=== PATIENT | male | born 1950 | race Caucasian/White ===

== ENCOUNTER → 2018-11-26 | Day surgery (SDC) | payer OTHER ==
[2018-11-25 15:31] LABS: BASOPHILS # (AUTO) 0.1 (0.0-0.1); BASOPHILS % 0.6 % (0.0-1.0); EOSINOPHILS # (AUTO) 0.4 (0.0-0.4); EOSINOPHILS % 3.7 % (0.0-6.0); HEMATOCRIT 38.3 % (38.2-49.6); HEMOGLOBIN 13.7 g/dL (14.0-18.0); LYMPHOCYTES # (AUTO) 1.5 (1.0-3.2); LYMPHOCYTES % 15.2 % (18.0-39.1); MEAN CORPUSCULAR HEMOGLOBIN 32.2 pg (28-32); MEAN CORPUSCULAR HGB CONC 35.8 g/dL (31-35); MEAN CORPUSCULAR VOLUME 89.9 fL (81-99); MONOCYTES # (AUTO) 0.8 (0.2-0.8); MONOCYTES % 8.4 % (4.4-11.3); NEUTROPHILS # (AUTO) 7.2 (2.1-6.9); NEUTROPHILS % 71.7 % (38.7-80.0); PLATELET COUNT 233 x10e3/uL (140-360); RED BLOOD COUNT 4.26 x10e6/uL (4.3-5.7); RED CELL DISTRIBUTION WIDTH 15.3 % (11.7-14.4)
[~2018-11-26] MED LIST: ALLEGRA-D 24 H1 EACH PO; ALLOPURINOL300 MG PO; ASPIR 8181 MG PO; ATENOLOL-CHLOR1 EAC1 PO; BACLOFEN10 MG PO; FAMOTIDINE20 MG PO; FENTANYL CITRATE/PF 100MCG/2 ML INJ ONE; LEVOTHYROXINE112 MCG PO; METOCLOPRAMIDE HCL 10 MG/2ML VIAL ONE; MIDAZOLAM HCL 2 MG/2 ML VIAL ONE; MIRALAX17 GM PO; NITROFURANTOIN100 MG PO; POTASSIUM CHLO10 ME1 PO; PROPOFOL IV EMULSION 10 MG/ML 20 ML VIAL ONE; SINEX; TORSEMIDE10 MG PO; TYLENOL EXTRA500 MG PEG; ULTRAM50 MG PO; VITAMIN D32000 UNIT PO
--- OUTSIDE RECORDS SUMMARY | 2018-11-26 13:00 | XMS REPORT | Continuity of Care Document ---
Author Author Formerly [facility] Interface Address Unknown Phone Unavailable Problems Problem Status Onset Date Classification Date Reported Comments Source LUMBAR RADIC Active 09/10/2018 [facility] [place] SPINAL STENOSIS, LUMBAR REGION WITH NEUR Active 09/03/2018 [place] LUMBAR RADICULOPATHY, SPINAL STENOSIS Active 09/03/2018 [place] 813.42 - FX DISTAL RADIU Active 03/17/2015 [facility] [place] WRIST FA Active 03/15/2015 [facility] [place] Gout Active Problem 11/20/2018 [facility], [place], [facility] [place] HBP (<span ID="[id number]">Confirmed</span>) Active Problem 11/20/2018 [facility], [place], [facility] [place] Morbid obesity Active Problem 11/20/2018 [facility] [place] [place] Chronic venous insufficiency Active Problem 11/20/2018 [facility] [place] [place] Edema Active Problem 11/20/2018 [facility] [place], [facility] [place] Hepatitis B Active Problem 11/20/2018 [facility] [place], [facility] [place] WRIST Active [facility] [place] RIGHT HAND Active [facility] [place] RT HAND Active [facility] [place] RADICULOPATHY, LUMBAR REGION Active [place] SPINAL STENOSIS, LUMBAR REGION WITH NEUR Active [facility] Medications Medication Details Route Status Patient Instructions Ordering Provider Order Date Source Diazepam 10 MG Oral Tablet [Valium] See Instructions, PRN as needed for anxiety, 1 tab PO 1 hour prior to MRI, repeat if needed 15 mins prior to MRI, # 2 tab, 0 Refill(s) Active 09/05/2018 [facility] Guillermina-D 24 Hour PO, Daily, 0 Refill(s) Active 09/04/2018 [facility] levothyroxine 112 mcg (0.112 mg) oral tablet 112 microgram=1 tab, PO, Daily, 0 Refill(s) Active 09/04/2018 [facility] Vitamin D3 0 Refill(s) Active 09/04/2018 [facility] tramadol hydrochloride 50 MG Oral Tablet 50 mg=1 tab, PO, Q4H, 0 Refill(s) Active 09/04/2018 [facility] gabapentin 300 MG Oral Capsule 300 mg=1 cap, PO, TID, 0 Refill(s) Active 09/04/2018 [facility] torsemide 20 mg oral tablet 20 mg=1 tab, PO, Daily, 0 Refill(s) Active 09/04/2018 [facility] baclofen 5 mg oral tablet 5 mg=1 tab, PO, TID, 0 Refill(s) Active 09/04/2018 [facility] Potassium Chloride 0 Refill(s) Active 09/04/2018 [facility] Atenolol 100 MG / Chlorthalidone 25 MG Oral Tablet 1 tab, PO, Daily, 0 Refill(s) Active 09/04/2018 [facility] Aspirin 81 MG Enteric Coated Tablet 81 mg=1 tab, PO, Daily, # 90 tab, 3 Refill(s) Active 09/04/2018 [facility] nitrofurantoin macrocrystals 50 mg oral capsule (Macrodantin) 50 mg=1 cap, PO, QID, 0 Refill(s) Active 09/04/2018 [facility] POLYETHYLENE GLYCOL 3350 142 MG/ML Oral Solution [Miralax] 17 gm, PO, Daily, 0 Refill(s) Active 09/04/2018 [facility] allopurinol 100 mg oral tablet 100 mg=1 tab, PO, BID, 0 Refill(s) Active 09/04/2018 [facility] gabapentin 300 MG Oral Capsule 900 mg=3 cap, PO, Bedtime, # 90 cap, 3 Refill(s), Pharmacy: [facility] [id number] Active 09/02/2018 [facility] Allergies, Adverse Reactions, Alerts Substance Category Reaction Severity Reaction type Status Date Reported Comments Source sulfa drugs Assertion Drug allergy Active [facility] [place] iodine Assertion Drug allergy Active [facility] [place] Immunizations Immunization Date Given Site Status Last Updated Comments Source Results Order Name Results Value Reference Range Date Interpretation Comments Source Spine T-L (or entire) 2-3 Views DX Spine T-L (or entire) 2-3 Views DX Study: Scoliosis series Clinical Indication: - M48.062 Spinal stenosis, lumbar region with neurogenic claudication; Comparison: Lumbar spine this date FINDINGS: AP erect images of the entire spine were obtained. Image quality is somewhat suboptimal. There is thoracic dextroscoliosis with a Tapia angle of 21.6 degrees measured between the superior endplates of T5 and T12. There is also rotatory lumbar levoscoliosis with a Tapia angle of 19.7 degrees measured between the superior superior endplates of T12 and L4. Osteopenia and spondylosis are noted. SL: [id number] 09/10/2018 - - Read by: Nacho Menjivar MD Dictated Date/time: 09/10/18 16:58 Electronically Signed by: Nacho Menjivar MD 09/10/18 17:01 FINAL REPORT [facility] Spine lumbar 2 or 3 views DX Spine lumbar 2 or 3 views DX Study: Lumbar spine, multiple views Clinical Indication: - M54.16 Radiculopathy, lumbar region; Comparison: Scoliosis series this FINDINGS: AP, lateral and flexion-extension images were obtained. There is rotatory levoscoliosis and generalized osteopenia. There is approximately 5 mm anterolisthesis of L5 with respect to S1. No compression fracture is evident. The L2-L3, L3-L4 and L5-S1 intervertebral disc spaces are narrowed. There are marginal osteophytes at all levels. Visualized sacroiliac joints are normal. Moderate amount of fecal material is noted within the colon. SL: [id number] 09/10/2018 - - Read by: Nacho Menjivar MD Dictated Date/time: 09/10/18 16:55 Electronically Signed by: Nacho Menjivar MD 09/10/18 16:58 FINAL REPORT [facility] Spine lumbar wo contrast MRI Spine lumbar wo contrast MRI Patient Name: CHIDI GARRETT : 1950; Age: 68 years Male MR: [id number] Study: Spine lumbar wo contrast MRI 09/10/2018 1:05 PM CDT Clinical Indication: - M54.16 Radiculopathy, lumbar region. COMPARISON: Lumbar spine radiographs 09/10/2018 TECHNIQUE: Multiplanar T1, T2, STIR weighted noncontrast MRI of the lumbar spine is performed on the 1.5 Sarita magnet. FINDINGS: ALIGNMENT AND GENERAL ASSESSMENT: Levoscoliotic curvature lumbar spine is present. The paraspinous soft tissues are unremarkable. The conus terminates at L2. There is no acute compression fracture evident. DISC SPACES: T12-L1: No disc bulge or protrusion. No spinal canal stenosis or foraminal narrowing. L1-L2: No disc bulge or protrusion. No spinal canal stenosis or foraminal narrowing. L2-L3: Posterior disc bulge with endplate osteophytes. No spinal canal stenosis. Right far lateral protrusion. Mild right foraminal narrowing. No left-sided foraminal narrowing. L3-L4: Posterior disc bulge with endplate osteophytes. Mild spinal canal stenosis. Spinal canal measures 9 mm. Mild facet degenerative changes. Moderate bilateral foraminal narrowing. L4-L5: Posterior disc bulge with endplate osteophytes. Mild facet degenerative changes. Moderate bilateral foraminal narrowing. L5-S1: Moderate facet degenerative changes. No significant disc bulge or protrusion. Mild to moderate left foraminal narrowing. No right-sided foraminal narrowing. IMPRESSION: 1. Degenerative levoscoliosis with multilevel degenerative changes most pronounced at L3-L4. 2. Mild spinal canal stenosis at L3-L4. 3. Moderate bilateral foraminal narrowing at L3-L4 and L4-L5. 4. Facet degenerative changes at L3-L4, L4-L5 and L5-S1. SL: PENELOPE 09/10/2018 - - Read by: Gold Jensen MD Dictated Date/time: 09/10/18 14:58 Electronically Signed by: Gold Jensen MD 09/10/18 15:05 FINAL REPORT [facility] wo contrast CT Wrist wo contrast CT PROCEDURE: RIGHT WRIST CT REASON FOR EXAM: Distal radial fracture. COMPARISON: None. TECHNIQUE: Unenhanced axial helical CT images of the right wrist were performed. Reformatted coronal and sagittal images and three-dimensional volume rendering images were reviewed. The dose length product (DLP) for the examination is 193.53 mGy-cm. FINDINGS: There is an acute mildly comminuted fracture of the distal radius with involvement of the articular surface. There is mild dorsal displacement of the distal radial dorsal fracture fragments. There is a tiny bony spur involving the dorsal aspect of the articular surface of the radius. There is an acute nondisplaced fracture involving the dorsal proximal aspect of the scaphoid (e.g. images 53 and 54 series 2 and images 44 through 50 series 401b). There is no additional demonstrable fracture or dislocation. There is soft tissue swelling. There is minimal bony spurring of the first carpometacarpal joint. There is mild bony spurring of the first metacarpal phalangeal joint. There is a small bony spur involving the ulnar aspect of the trapezium. There is a small bony spur involving the dorsal aspect of the lunate. There is a 3 mm cyst in the marrow of the head of the first metacarpal. There is a 3 mm benign bone island in the marrow of the scaphoid. IMPRESSION: 1. There is an acute mildly comminuted mildly displaced distal right radial fracture with involvement of the articular surface. 2. There is an acute nondisplaced fracture involving the dorsal proximal scaphoid. 3. Soft tissue swelling. 4. Mild osteoarthritic changes. SL: 15 03/18/2015 - - Read by: Cayden Mott MD Dictated Date/time: 03/18/15 11:20 Electronically Signed by: Cayden Mott MD 03/18/15 12:04 FINAL REPORT [facility] Vital Signs Vital Sign Value Date Comments Source Height 172.72 cm 09/25/2018 [facility] Weight 116.364 09/25/2018 [facility] BMI Calculated 39.01 09/25/2018 Replaced By [facility] Temperature Oral (F) 98.2 F 09/25/2018 Replaced By [facility] Heart Rate 57 09/25/2018 [facility] Systolic (mm Hg) 173 09/25/2018 [facility] Diastolic (mm Hg) 73 09/25/2018 [facility] Height 172.72 cm 09/02/2018 [facility] Weight 116.818 09/02/2018 Replaced By [facility] BMI Calculated 39.16 09/02/2018 [facility] Heart Rate 71 09/02/2018 [facility] Temperature Oral (F) 98.5 F 09/02/2018 [facility] Systolic (mm Hg) 144 09/02/2018 [facility] Diastolic (mm Hg) 85 09/02/2018 Replaced By [facility] Encounters Location Location Details Encounter Type Encounter Number Reason For Visit Attending Provider ADM Date DC Date Status Source [facility] Outpatient [facility] [place] [facility] [id number] Daniel Soliman [facility]/18[facility]2015 [facility] [place] [facility] [id number] Daniel Soliman 05/06/2015 06/05/2015 [facility] [place] [place] [facility] Patients [id number] Daniel Soliman 06/08/2015 07/08/2015 [facility] [place] [facility] [place] OP Therapy Patients [id number] Daniel Soliman 09/14/2015 10/14/2015 [facility] [place] [place] [facility] [place] [facility] Patients [id number] Daniel Soliman 10/26/2015 11/25/2015 [facility] [place] [facility] [place] [place] OP Therapy Patients [id number] Daniel Soliman 11/30/2015 12/30/2015 [facility] [place] Phone Message [id number] 08/25/2018 08/27/2018 Replaced By [facility] Outpatient [id number] ROCIO NAVARRO 09/02/2018 [facility] [place] [facility] [id number] Chidi Alcala 09/02/2018 09/03/2018 [facility] [place] Phone Message [id number] 09/05/2018 09/07/2018 [facility] Outpatient [id number] Cayden Hand 09/10/2018 09/11/2018 [facility] [place] OP Therapy Patients [id number] Cayden Hand 09/17/2018 10/17/2018 [facility] [place] Outpatient [id number] Cayden Hand 09/25/2018 [facility] [place] [facility] [id number] Cayden Hand 09/25/2018 09/26/2018 [facility] [place] OP Therapy Patients [id number] Cayden Hand 10/20/2018 11/19/2018 [facility] [place] Procedures Procedure Code Date Perfomer Comments Source Tendon operation [id number] Replaced By [facility] Tonsillectomy [id number] Replaced By [facility] Tendon operation [id number] [facility] Tonsillectomy [id number] [facility] Tendon operation [id number] [facility] [place] Tonsillectomy [id number] [facility] [place]
--- OUTSIDE RECORDS SUMMARY | 2018-11-26 13:00 | XMS REPORT | Summary of Care ---
Author Author [facility] [employer] [facility] [employer] Address Unknown Phone Unavailable Encounter HQ Christiner_jadiel(BRIANNA) [id number] Date(s): 11/30/15 - 12/29/15 [facility] Discharge Disposition: Home Attending Physician: Daniel Soliman MD Vital Signs No data available for this section Problem List No data available for this section Allergies, Adverse Reactions, Alerts No data available for this section Medications No data available for this section Results No data available for this section Immunizations No data available for this section Procedures No data available for this section Social History No data available for this section Assessment and Plan No data available for this section
--- OUTSIDE RECORDS SUMMARY | 2018-11-26 13:00 | XMS REPORT | Summary of Care ---
Author Author [facility] Address Unknown Phone Unavailable Encounter HQ Encntr_jadiel(FIN) [id number] Date(s): 09/17/18 - 10/16/18 [facility] Discharge Disposition: Home or Self Care Attending Physician: Cayden Hand MD Vital Signs No data available for this section Problem List Condition Effective Dates Status Health Status Informant Gout(Confirmed) Active HBP (high blood Active pressure)(Confirmed) Morbid Active obesity(Confirmed) Chronic venous Active insufficiency(Confir med) Edema(Confirmed) Active Hepatitis Active B(Confirmed) Allergies, Adverse Reactions, Alerts Substance Reaction Severity Status sulfa drugs Active iodine Active Medications No data available for this section Results No data available for this section Immunizations No data available for this section Procedures Procedure Date Related Diagnosis Body Site Status Tendon operation Completed Tonsillectomy Completed Social History Social History Type Response Smoking Status Former smoker; Type: Cigarettes; Exposure to Tobacco Smoke None; Cigarette Smoking Last 365 Days No; Reg Smoking Cessation Counseling No1 entered on: 09/25/18 1Quit in 1995. Assessment and Plan No data available for this section
--- OUTSIDE RECORDS SUMMARY | 2018-11-26 13:00 | XMS REPORT | Summary of Care ---
Author Author [facility]ine [facility] [place] [facility]ine Clinic [facility] Address Unknown Phone Unavailable Encounter HQ Encntr_alias(FIN) [id number] Date(s): 08/25/18 - 08/26/18 [facility] Spine [facility] [address] [phone] Vital Signs No data available for this [...]
--- OUTSIDE RECORDS SUMMARY | 2018-11-26 13:00 | XMS REPORT | Summary of Care ---
Author Author [facility] Address Unknown Phone Unavailable Encounter HQ Brijeshntr_jadiel(FIN) [id number] Date(s): 10/20/18 - 11/18/18 [facility] Discharge Disposition: Home or Self Care Attending Physician: Cayden Hadn MD Vital Signs No data available for [...]
--- OUTSIDE RECORDS SUMMARY | 2018-11-26 13:00 | XMS REPORT | Summary of Care ---
Author Author [facility] Outpatient Imaging [facility] Address Unknown Phone Unavailable Encounter HQ Encntr_alias(FIN) [id number] Date(s): 03/18/15 - 03/18/15 [facility] Outpatient Imaging [address] [address]- [phone] Discharge Disposition: Home Attending Physician: Daniel Soliman [...]
--- OUTSIDE RECORDS SUMMARY | 2018-11-26 13:00 | XMS REPORT | Summary of Care ---
Author Author [facility] [employer] [facility] [employer] Address Unknown Phone Unavailable Encounter HQ Christiner_jadiel(BRIANNA) [id number] Date(s): 10/26/15 - 11/24/15 [facility] Discharge Disposition: Home Attending Physician: Daniel Soliman [...]
--- OUTSIDE RECORDS SUMMARY | 2018-11-26 13:00 | XMS REPORT | Summary of Care ---
Author Author [facility] [employer] [facility] [employer] Address Unknown Phone Unavailable Encounter HQ Christiner_jadiel(BRIANNA) [id number] Date(s): 06/08/15 - 07/07/15 [facility] Discharge Disposition: Home Attending Physician: [...]
--- OUTSIDE RECORDS SUMMARY | 2018-11-26 13:00 | XMS REPORT | Summary of Care ---
Author Author [facility] [place] [facility] Address Unknown Phone Unavailable Encounter HQ Rose_jadiel(FIN) [id number] Date(s): 09/05/18 - 09/06/18 [facility] Spine [employer] [address] [facility] [address] [phone] Vital Signs No data available for this section Problem List Condition Effective Dates Status Health Status Informant Gout(Confirmed) Active HBP (high blood Active pressure)(Confirmed) Morbid Active obesity(Confirmed) Chronic venous Active insufficiency(Confir med) Edema(Confirmed) Active Hepatitis Resolved B(Confirmed) Allergies, Adverse Reactions, Alerts Substance Reaction Severity Status sulfa drugs Active iodine Active Medications Valium 10 mg oral tablet See Instructions, PRN as needed for anxiety, 1 tab PO 1 hour prior to MRI, repea t if needed 15 mins prior to MRI, # 2 tab, 0 Refill(s) Start Date: 09/05/18 Stop Date: 09/29/18 Status: Ordered Results No data available for this section Immunizations No data available for this section Procedures Procedure Date Related Diagnosis Body Site Status Tendon operation Completed Tonsillectomy Completed Social History Social History Type Response Smoking Status Former smoker; Type: Cigarettes; Exposure to Tobacco Smoke None; Cigarette Smoking Last 365 Days No; Reg Smoking Cessation Counseling No1 entered on: 09/04/18 1Quit in 1995. Assessment and Plan No data available for this section
--- OUTSIDE RECORDS SUMMARY | 2018-11-26 13:00 | XMS REPORT | Summary of Care ---
Author Author [facility] Organization [facility] Address Unknown Phone Unavailable Encounter HQ Rose_jadiel(FIN) [id number] Date(s): 09/10/18 - 09/10/18 [facility] [address] [place] [address]- Discharge Disposition: Home or Self Care Attending Physician: Cayden Hand MD Referring Physician: Cayden Hadn MD Vital Signs No [...]
--- OUTSIDE RECORDS SUMMARY | 2018-11-26 13:00 | XMS REPORT | Summary of Care ---
Author Author [facility] Spine [facility] Organization [facility] Sp[facility] Address Unknown Phone Unavailable Encounter EMMA Blanco(BRIANNA) [id number] Date(s): 09/25/18 - 09/25/18 [facility] Spine [facility] [address] [facility] [address] [place] [address]- [phone] Discharge Disposition: Home or Self Care Attending Physician: Cayden Hand MD Referring Physician: Chidi Alcala MD Vital Signs Most recent to 1 oldest [Reference Range]: Height 172.72 cm (09/25/18 2:59 PM) Temperature Oral 98.2 DegF [96.4-99.1 DegF] (09/25/18 2:59 PM) Blood Pressure 173/73 mmHg [90-140/60-90 mmHg] *HI* (09/25/18 2:59 PM) Peripheral Pulse 57 bpm Rate [60-100 bpm] *LOW* (09/25/18 2:59 PM) Weight 116.364 kg (09/25/18 2:59 PM) Body Mass Index 39.01 m2 (09/25/18 2:59 PM) Problem List Condition Effective Dates Status Health Status Informant Gout(Confirmed) Active HBP (high blood Active pressure)(Confirmed) Morbid Active obesity(Confirmed) Chronic venous Active insufficiency(Confir med) Edema(Confirmed) Active Hepatitis Resolved B(Confirmed) Allergies, Adverse Reactions, Alerts Substance Reaction Severity Status sulfa drugs Active iodine Active Medications No Known Medications Results No data available for this section [...]
--- OUTSIDE RECORDS SUMMARY | 2018-11-26 13:00 | XMS REPORT | Summary of Care ---
Author Author [facility] Organization [facility] Address Unknown Phone Unavailable Encounter HQ Francis(FIN) [id number] Date(s): 09/02/18 - 09/02/18 [facility] Spine [facility] [address] [facility] [address] [phone] Discharge Disposition: Home or Self Care Attending Physician: Cayden Hand MD Referring Physician: Chidi Alcala MD Vital Signs Most recent to 1 oldest [Reference Range]: Height 172.72 cm (09/02/18 7:00 AM) Temperature Oral 98.5 DegF [96.4-99.1 DegF] (09/02/18 7:00 AM) Blood Pressure 144/85 mmHg [90-140/60-90 mmHg] *HI* (09/02/18 7:00 AM) Peripheral Pulse 71 bpm Rate [60-100 bpm] (09/02/18 7:00 AM) Weight 116.818 kg (09/02/18 7:00 AM) Body Mass Index 39.16 m2 (09/02/18 7:00 AM) Problem List Condition Effective Dates Status Health Status Informant Gout(Confirmed) Active HBP (high blood Active pressure)(Confirmed) Chronic venous Active insufficiency(Confir med) Edema(Confirmed) Active Hepatitis Resolved B(Confirmed) Allergies, Adverse Reactions, Alerts Substance Reaction Severity Status sulfa drugs Active iodine Active Medications Guillermina-D 24 Hour PO, Daily, 0 Refill(s) Start Date: 09/04/18 Status: Ordered allopurinol 100 mg oral tablet 100 mg=1 tab, PO, BID, 0 Refill(s) Start Date: 09/04/18 Status: Ordered aspirin 81 mg tablet, enteric coated 81 mg=1 tab, PO, Daily, # 90 tab, 3 Refill(s) Start Date: 09/04/18 Status: Ordered atenolol-chlorthalidone 100 mg-25 mg oral tablet 1 tab, PO, Daily, 0 Refill(s) Start Date: 09/04/18 Status: Ordered baclofen 5 mg oral tablet 5 mg=1 tab, PO, TID, 0 Refill(s) Start Date: 09/04/18 Status: Ordered gabapentin 300 mg oral capsule 300 mg=1 cap, PO, TID, 0 Refill(s) Start Date: 09/04/18 Status: Ordered gabapentin 300 mg oral capsule 900 mg=3 cap, PO, Bedtime, # 90 cap, 3 Refill(s), Pharmacy: [facility] [id number] Start Date: 09/02/18 Status: Ordered levothyroxine 112 mcg (0.112 mg) oral tablet 112 microgram=1 tab, PO, Daily, 0 Refill(s) Start Date: 09/04/18 Status: Ordered MiraLax oral powder for reconstitution 17 gm, PO, Daily, 0 Refill(s) Start Date: 09/04/18 Status: Ordered nitrofurantoin macrocrystals 50 mg oral capsule (Macrodantin) 50 mg=1 cap, PO, QID, 0 Refill(s) Start Date: 09/04/18 Status: Ordered potassium chloride 0 Refill(s) Start Date: 09/04/18 Status: Ordered torsemide 20 mg oral tablet 20 mg=1 tab, PO, Daily, 0 Refill(s) Start Date: 09/04/18 Status: Ordered tramadol 50 mg oral tablet 50 mg=1 tab, PO, Q4H, 0 Refill(s) Start Date: 09/04/18 Status: Ordered Vitamin D3 0 Refill(s) Start Date: 09/04/18 Status: Ordered Results No data available for [...]
--- OUTSIDE RECORDS SUMMARY | 2018-11-26 13:00 | XMS REPORT | Summary of Care ---
Author Author [facility] [employer] [facility] [employer] Address Unknown Phone Unavailable Encounter HQ Christiner_jadiel(BRIANNA) [id number] Date(s): 06/08/15 - 07/07/15 [facility] Discharge Disposition: Home Attending Physician: Daniel [...]
--- OUTSIDE RECORDS SUMMARY | 2018-11-26 13:00 | XMS REPORT | Summary of Care ---
Author Author [facility] [employer] [facility] [employer] Address Unknown Phone Unavailable Encounter HQ Christiner_jadiel(BRIANNA) [id number] Date(s): 09/14/15 - 10/13/15 [facility] Discharge Disposition: Home Attending Physician: [...]
[2018-11-26 16:20] VITALS: BP 143/76
--- NOTE | 2018-11-26 23:01 | Operative Report ---
DATE OF PROCEDURE: 11/26/2018 SURGEON: Kenji Ceron MD PROCEDURE: Esophagogastroduodenoscopy with biopsies. INDICATION FOR PROCEDURE: Upper abdominal pain. MEDICATIONS: The patient was done under MAC, please see anesthesiologist's note. PROCEDURE IN DETAIL: With the patient in left lateral decubitus position, a flexible fiberoptic Olympus gastroscope was introduced into the esophagus under direct visualization without any difficulty. There was some patchy erythema noted in the distal esophagus. The scope was then advanced with ease into the stomach. Mucosa overlying the antrum and the body revealed some diffuse erythema and low-grade to moderate edema and biopsies were obtained and sent to stain for H pylori. Pylorus was of normal contour and shape, it was intubated with ease and the scope was advanced all the way to the second portion of the duodenum. The scope was then withdrawn slowly and biopsies were obtained from the proximal second portion as well as the duodenal bulb to rule out sprue. There was also some focal nodularity noted in the duodenal bulb and that was biopsied. The scope was then withdrawn back into the stomach and retroflexed mucosa overlying the fundus and the cardia appeared to be within normal limits. The scope was then straightened out, it was subsequently withdrawn. The patient tolerated the procedure well. IMPRESSION: 1. Distal esophagitis, mild. 2. Gastritis, biopsied. Biopsies sent to stain for Helicobacter pylori. 3. Focal nodularity, duodenal bulb, biopsied. 4. Rule out sprue. PLAN: Follow up histology. Initiate Protonix 40 mg one p.o. q.a.m. a.c. Kenji Ceron MD [facility] [place] /[id number] cc: Manju Mccormick
== END | disposition home or self-care (01) ==
LOC: OR 12:56
PROVIDERS: ATTEND Internal Medicine Gastroenterology
DX: K29.70 Gastritis, unspecified, without bleeding (principal); K20.9 Esophagitis, unspecified; K31.89 Other diseases of stomach and duodenum; K21.9 Gastro-esophageal reflux disease without esophagitis; K59.00 Constipation, unspecified; I10 Essential (primary) hypertension; E03.9 Hypothyroidism, unspecified; M54.9 Dorsalgia, unspecified; M79.606 Pain in leg, unspecified; Z88.2 Allergy status to sulfonamides; Z91.041 Radiographic dye allergy status; Z01.810 Encounter for preprocedural cardiovascular examination; Z01.812 Encounter for preprocedural laboratory examination; Z79.82 Long term (current) use of aspirin; Z68.41 Body mass index [BMI] 40.0-44.9, adult
CPT/HCPCS: 36415; 43239; 85025; 93005; J2250; J2704; J2765

== ENCOUNTER → 2020-01-08 | Day surgery (SDC) | payer BC, OTHER ==
[2020-01-04 13:35] LABS: BASOPHILS # (AUTO) 0.1 (0.0-0.1); BASOPHILS % 0.4 % (0.0-1.0); EOSINOPHILS # (AUTO) 0.2 (0.0-0.4); EOSINOPHILS % 1.3 % (0.0-6.0); HEMATOCRIT 39.4 % (38.2-49.6); HEMOGLOBIN 13.7 g/dL (14.0-18.0); LYMPHOCYTES # (AUTO) 1.2 (1.0-3.2); LYMPHOCYTES % 9.4 % (18.0-39.1); MEAN CORPUSCULAR HEMOGLOBIN 31.9 pg (28-32); MEAN CORPUSCULAR HGB CONC 34.8 g/dL (31-35); MEAN CORPUSCULAR VOLUME 91.8 fL (81-99); MONOCYTES % 7.3 % (4.4-11.3); NEUTROPHILS # (AUTO) 10.6 (2.1-6.9); NEUTROPHILS % 81.1 % (38.7-80.0); PLATELET COUNT 225 x10e3/uL (140-360); RED BLOOD COUNT 4.29 x10e6/uL (4.3-5.7); RED CELL DISTRIBUTION WIDTH 15.1 % (11.7-14.4)
[~2020-01-08] MED LIST changes: -FENTANYL CITRATE/PF 100MCG/2 ML INJ ONE; +GLUCAGON FOR INJ 1 MG VIAL ONE; +HYOSCYAMINE 0.125 MG TAB ONE; +LIDOCAINE HCL 2% LOCAL INJ 5 ML SDV VIAL INJ ONE; -METOCLOPRAMIDE HCL 10 MG/2ML VIAL ONE; +MICARDIS40 MG PO; -MIDAZOLAM HCL 2 MG/2 ML VIAL ONE
[2020-01-08 12:25] VITALS: BP 120/55
[2020-01-08 12:34] LABS: WBC,FECAL (FECAL LACTOFERRIN) NEGATIVE (NEGATIVE)
--- NOTE | 2020-01-08 12:45 | Operative Report ---
DATE OF PROCEDURE: 01/08/2020 SURGEON: Kenji Ceron MD PROCEDURE: Colonoscopy with biopsies. INDICATIONS FOR COLONOSCOPY: Colorectal cancer screening, change in bowel habits. MEDICATIONS: The patient was done under MAC, please see anesthesiologist's note. PROCEDURE IN DETAIL: With the patient in left lateral decubitus position, a flexible fiberoptic Olympus colonoscope was inserted into the rectum with ease and advanced all the way to the cecum. Mucosa overlying the cecum appeared to be within normal limits. The ileocecal valve was intubated and the scope was advanced into the terminal ileum. Biopsies were obtained. The scope was then withdrawn back into the colon. It was then withdrawn slowly, mucosa overlying the ascending and the transverse appeared to be within normal limits. The mucosa overlying the left colon revealed some patchy mild inflammatory changes and random biopsies were obtained. Anastomosis was noted at approximately 10 cm from the anal verge, that was intact. The scope was then retroflexed into the distal rectum, small internal hemorrhoids were noted, none of which was actively bleeding. The scope was then straightened out, it was subsequently withdrawn after securing an adequate stool specimen, that was sent for the appropriate stool studies. The patient tolerated the procedure well. IMPRESSION: 1. Mild patchy left-sided colitis. 2. Anastomosis at approximately 10 cm from the anal verge, intact. 3. Internal hemorrhoids, none actively bleeding. PLAN: 1. Follow up histology. 2. Follow up stool studies. 3. Initiate Bentyl 10 mg one p.o. t.i.d. VSL #3 one p.o. b.i.d. 4. The patient might benefit from a followup colonoscopy in 10 years. Kenji Ceron MD [facility] [place] /[id number] cc: De. Manju Mccormick
[2020-01-08 13:03] LABS: % IRON SATURATION 20 % (15-50); IRON 65 ug/dL (65-175); TOTAL IRON BINDING CAPACITY 322 ug/dL (261-478); TRANSFERRIN 230 mg/dL (174-364)
[2020-01-08 15:23] LABS: C DIFFICILE TOXIN A&B AMP PROB NEGATIVE (NEGATIVE)
== END | disposition home or self-care (01) ==
LOC: OR 09:38
PROVIDERS: ATTEND Internal Medicine Gastroenterology
DX: K51.50 Left sided colitis without complications (principal); Z98.0 Intestinal bypass and anastomosis status; K64.8 Other hemorrhoids; K59.00 Constipation, unspecified; K29.50 Unspecified chronic gastritis without bleeding; R00.1 Bradycardia, unspecified; K20.9 Esophagitis, unspecified; M19.90 Unspecified osteoarthritis, unspecified site; I12.9 Hypertensive chronic kidney disease with stage 1 through stage 4 chronic kidney disease, or unspecified chronic kidney disease; N18.3 Chronic kidney disease, stage 3 (moderate); Z88.2 Allergy status to sulfonamides; Z91.041 Radiographic dye allergy status; Z01.810 Encounter for preprocedural cardiovascular examination; Z01.812 Encounter for preprocedural laboratory examination; Z11.59 Encounter for screening for other viral diseases; Z79.82 Long term (current) use of aspirin; Z68.41 Body mass index [BMI] 40.0-44.9, adult; Z86.19 Personal history of other infectious and parasitic diseases
CPT/HCPCS: 36415 ×2; 45380; 82607; 82746; 83540; 83630; 83993; 84466; 85025; 85045; 87045; 87177; 87328; 87493; 93005; J1610; J2001; J2704; U0002; 45378

== ENCOUNTER → 2021-05-31 | Outpatient (CLI) | payer BC ==
[~2021-05-31] MED LIST changes: -GLUCAGON FOR INJ 1 MG VIAL ONE; -HYOSCYAMINE 0.125 MG TAB ONE; -LIDOCAINE HCL 2% LOCAL INJ 5 ML SDV VIAL INJ ONE; -PROPOFOL IV EMULSION 10 MG/ML 20 ML VIAL ONE
== END ==
LOC: RAD 15:06
PROVIDERS: ATTEND Internal Medicine Gastroenterology
DX: K59.09 Other constipation (principal)
CPT/HCPCS: 74018

== ENCOUNTER → 2022-05-18 | Outpatient (CLI) | payer BC | LOC: US 13:13 | PROVIDERS: ATTEND Internal Medicine Gastroenterology | DX: R74.8 Abnormal levels of other serum enzymes (principal) | CPT/HCPCS: 76700 ==